=== PATIENT | female | born 1955 | race Caucasian/White ===

== ENCOUNTER 2024-07-17 15:30 | Outpatient (RCR) | payer MEDICARE, SELFPAY | END 2024-11-14 23:59 | disposition home or self-care (01) | PROVIDERS: Visit Provider Family Medicine | DX: M54.41 Lumbago with sciatica, right side (principal); M54.18 Radiculopathy, sacral and sacrococcygeal region; M54.42 Lumbago with sciatica, left side; K59.00 Constipation, unspecified; Z51.89 Encounter for other specified aftercare | CPT/HCPCS: 97110; 97162; 97535 ==